=== PATIENT | male | born 1975 | race Caucasian/White ===

== ENCOUNTER 2024-04-06 09:18 | Emergency (ER) | payer OTHER, SELFPAY ==
[2024-04-06 09:20] VITALS: BP 141/84; PULSE 82; RESP 14; TEMP 36.6; O2SAT 97; BMI 27.8
--- NOTE | 2024-04-06 09:21 | ED.EXTPRO ---
HPI - Extremity Problem General Chief complaint: Extremity Injury, Upper Stated complaint: R hand injury at work Time Seen by Provider: 04/06/24 09:21 History of Present Illness HPI Narrative: Patient is a 48-year-old male with no significant past medical history presents to the ED for evaluation of pain to his right hand, he states that while he was at work states that this happened at around 6:30 a.m.. States that he had a heavy lid fall onto his right hand. Had immediate pain, states that he did try taking some Motrin prior to arrival but had persistent pain therefore decided come into the ED for further evaluation treatment. He states that he believes he is up to date on his tetanus shot within the past 5 years. He denies any numbness weakness tingling to the hand. No other injuries at this time. Related Data Allergies Allergy/AdvReac Type Severity Reaction Status Date / Time Penicillins [PENICILLINS] Allergy Unknown Verified 04/06/24 09:26 Review of Systems Review of Systems Narrative: General: Denies fever, chills, weight loss HEENT: Denies headache, eye drainage, eye irritation, head trauma, sore throat, voice change Cardiovascular: Denies any chest pain, palpitations, shortness of breath, tachycardia Respiratory: Denies any shortness of breath, cough, wheeze, stridor GI/: Denies any abdominal pain, nausea, vomiting, diarrhea, bright red blood per rectum, melanotic stools, urinary frequency, urinary retention, dysuria, hematuria MSK: Pain to the right hand Skin: Denies any rashes, lesions, discoloration Neuro: Denies any headache, lightheadedness, dizziness, fainting, weakness Psych: Denies SI/HI Patient History Social History Smoking Status: Unknown if ever smoked Exam Narrative Exam Narrative: General: Denies fever, chills, weight loss HEENT: Denies headache, eye drainage, eye irritation, head trauma, sore throat, voice change Cardiovascular: Denies any chest pain, palpitations, shortness of breath, tachycardia Respiratory: Denies any shortness of breath, cough, wheeze, stridor GI/: Denies any abdominal pain, nausea, vomiting, diarrhea, bright red blood per rectum, melanotic stools, urinary frequency, urinary retention, dysuria, hematuria MSK: The right hand is neurovascularly intact, there is a small abrasion noted to the posterior aspect of the base of the 2nd and 3rd finger. No crepitus no other overlying gross deformity. Skin: Denies any rashes, lesions, discoloration Neuro: Denies any headache, lightheadedness, dizziness, fainting, weakness Psych: Denies SI/HI Initial Vital Signs Initial Vital Signs: Vital Signs Temperature 98 F 04/06/24 09:20 Pulse Rate 82 04/06/24 09:20 Respiratory Rate 14 04/06/24 09:20 Blood Pressure 141/84 H 04/06/24 09:20 Pulse Oximetry 97 04/06/24 09:20 Oxygen Delivery Method Room Air 04/06/24 09:20 Course Orders Ordered: ED Orders 04/06/24 09:25 XR hand RT min 3V Stat Vital Signs Vital signs: Vital Signs - 8 hr 04/06/24 09:20 Temperature 98 F Pulse Rate 82 Respiratory Rate 14 Blood Pressure 141/84 H Pulse Oximetry 97 Oxygen Delivery Method Room Air MDM - Extremity (Nontraumatic) Imaging Data Extremity x-ray #1: Radiologist's Impression: [address] [address] XRay Report Signed Patient: Mack Gil MR#: [id number] : 1975 Acct:[id number] Age/Sex: 48 / M Date of Service: 04/06/24 Loc: ED Accession Number: [id number] Procedure: XR hand RT min 3V Ordering Provider: Ashok Kaur D.O. PROCEDURE: XR HAND RT MIN 3V INDICATIONS: pain to the posterior aspect of hand after lid slammed on it TECHNIQUE: 3 views of the hand(s) acquired. COMPARISON: None. FINDINGS: Bones: No fractures or dislocations. Carpal bones are normally aligned. No suspicious bony lesions. Soft tissues: No suspicious soft tissue calcifications. IMPRESSION: No visualized acute fracture or dislocation. However, if clinical concern and/or pain persist, short interval imaging followup in 7-10 days is recommended, as occult injury cannot be definitively excluded. [facility] Narrative Medical decision making narrative: Patient is a 48-year-old male with no significant past medical history presents to the ED for evaluation of pain to his right hand, he states that while he was at work a heavy lid dropped onto his right hand. Patient complaining of pain immediately after the event but no numbness weakness tingling to the extremity no other injuries. X-ray without any signs of fracture, there is no snuffbox tenderness to palpation. Patient will be sent home in an Ramiro wrap told to follow up with PCP and orthopedic surgery in outpatient setting. Safe for discharge home with outpatient follow up Discharge Plan Departure Patient Disposition: Home Clinical Impression: Hand pain, right Activity Restrictions/Additional Instructions: Please read the discharge instructions sheet carefully and bring all papers to all doctor follow-up visits, as it may contain information that your doctor may want to see. Disease processes change and evolve, if your symptoms worsen or if you develop any new symptoms that are concerning to you please return for evaluation. Your evaluation today does not show any evidence of any life-threatening/serious illnesses requiring admission to the hospital or surgery. Please follow-up with your doctor for re-evaluation in approximately 1 day. Seek immediate medical attention for any worrisome symptoms. Referrals: Caryl Fuchs MD [Physician] - Stand Alone Forms: Patient Portal/API
--- NOTE | 2024-04-06 09:25 | DI.RAD.S_ITS ---
PROCEDURE: XR HAND RT MIN 3V INDICATIONS: pain to the posterior aspect of hand after lid slammed on it TECHNIQUE: 3 views of the hand(s) acquired. COMPARISON: None. FINDINGS: Bones: No fractures or dislocations. Carpal bones are normally aligned. No suspicious bony lesions. Soft tissues: No suspicious soft tissue calcifications. IMPRESSION: No visualized acute fracture or dislocation. However, if clinical concern and/or pain persist, short interval imaging followup in 7-10 days is recommended, as occult injury cannot be definitively excluded. Dictated by: Anca Taylor M.D. on 04/06/2024 at 9:51 Approved by: Anca Taylor M.D. on 04/06/2024 at 9:52
== END 2024-04-06 10:09 | disposition home or self-care (01) ==
PROVIDERS: Emergency Provider Student in an Organized Health Care Education/Training Program
DX: M79.641 Pain in right hand (principal); W20.8XXA Other cause of strike by thrown, projected or falling object, initial encounter; Y99.0 Civilian activity done for income or pay
CPT/HCPCS: 73130; 99281; 99283

== ENCOUNTER 2024-10-20 09:39 | Day surgery (SDC) | payer OTHER, SELFPAY ==
[2024-10-18 09:02] VITALS: BMI 33.5
[2024-10-20 10:08] VITALS: BP 151/93; PULSE 84; RESP 16; TEMP 36.6; O2SAT 97
[2024-10-20 10:09] VITALS: BMI 33.5
[2024-10-20] MEDS: LACTATED RINGERS 1,000 ML 42 ML IV (10:21)
[2024-10-20] MEDS: ACETAMINOPHEN 325 MG TABLET 975 MG PO (10:27)
--- NOTE | 2024-10-20 11:16 | PM.PREOP ---
Pre-operative Note COVID-19 COVID-19 status: Not tested Interval Note History & Physical reviewed/Exam performed by Physician: Yes Changes to H&P: No ASA Class (for procedural sedation): II
[2024-10-20] MEDS: CEFAZOLIN 2 GM/100 ML PREMIX 100 ML IV (12:00)
--- NOTE | 2024-10-20 12:13 | SUR.OPER ---
Supine on padded OR bed, head on pillow, arms secured on padded arm boards at <90 degrees abduction, legs uncrossed, safety belt at thigh, tape over blanket over lower legs.
[2024-10-20] MEDS: BUPIVACAINE 0.25% W/ EPI 30 ML VIAL INJ (12:55)
--- NOTE | 2024-10-20 12:55 | P.OP_ITS ---
Operative Date/Time/Diagnoses Date of procedure: 10/20/24 Time of procedure: 12:55 Pre-op diagnosis: Umbilical hernia Post-op diagnosis: same Procedure & Clinicians Procedure: Open umbilical hernia repair with mesh Same procedure as scheduled: Yes Surgeon: Alvaro [employer] Biologist: Brian Lizarraga Anesthesia Type: General Operative Notes Procedure in detail: Ancef was administered. The patient was brought to the operating room, placed on the table in the supine position and MAC was induced. The abdomen was prepped and draped in the usual fashion. A time-out was performed. A for cm curvilinear incision was made inferior to the umbilicus. The hernia sac was dissected free from the surrounding subcutaneous adipose tissue. The sac was dissected off the umbilical stalk using a combination of cautery, sharp and blunt dissection. The hernia sac was dissected free from the fascial ring and allowed to drop back down into the abdomen. The fascial defect was about 2 cm. The fascia was then closed transversely with multiple interrupted 0 Ethibond sutures. The subcutaneous adipose tissue was cleared off of the anterior sheath circumferentially about 2 cm in each direction. A piece of polypropylene mesh was trimmed to fit over the fascial closure and secured with Tisseel. Once the Tisseel was dried the umbilical skin was tacked down to the mesh with a single 3-0 Vicryl stitch. The skin was closed with multiple interrupted 3-0 Vicryl dermal sutures followed by a running 4 Monocryl subcuticular closure. Steri-Strips were applied and an abdominal pressure dressing was applied. Brian POWELL provided assistance with exposure, retraction and closure of incisions. Post-operative Condition: stable Disposition: PACU
[2024-10-20] MEDS: LIDOCAINE 1% 20 ML INJ (12:56)
[2024-10-20 13:02] VITALS: BP 129/74; PULSE 88; RESP 15; TEMP 36.3; O2SAT 95
[2024-10-20 13:07] VITALS: BP 123/75; PULSE 87; RESP 13; O2SAT 97
[2024-10-20 13:12] VITALS: BP 115/72; PULSE 80; RESP 15; O2SAT 97
[2024-10-20 13:17] VITALS: BP 116/75; PULSE 78; RESP 14; O2SAT 98
[2024-10-20 13:23] VITALS: BP 120/78; PULSE 79; RESP 17; O2SAT 99
[2024-10-20] MEDS: OXYCODONE IR 5 MG TABLET PO (13:51)
== END 2024-10-20 14:10 | disposition home or self-care (01) ==
PROVIDERS: PCP Registered Nurse; Referring Provider Surgery; Visit Provider Surgery
PROC: (CPT 49591; principal; 2024-10-20 11:15)
DX: K42.9 Umbilical hernia without obstruction or gangrene (principal)
CPT/HCPCS: 49591; 82962; C1781; C9250; J0690; J1100; J2250; J2405; J2704; J3010